=== PATIENT | female | born 2000 | race Caucasian/White ===

== ENCOUNTER 2018-01-18 19:48 | Emergency (ER) | payer OTHER ==
[~2018-01-18] VITALS: Ht 165.1 cm; Wt 104.8 kg
[~2018-01-18 19:48] MED LIST: ALBU90OI INH; ALBU90OI6 INH; AMOX500 PO; Acetaminophen-1 EAC1 PO; BCP; CLON.1 PO; CODACEE120 PO; Cipro500 MG PO; IBUP800 PO
[2018-01-18] MEDS ORDERED: PSEU120ER PO (20:20)
== END 2018-01-18 20:32 | disposition home or self-care (01) ==
LOC: ER 19:48
DX: H69.81 Other specified disorders of Eustachian tube, right ear (principal); F17.210 Nicotine dependence, cigarettes, uncomplicated
CPT/HCPCS: 99282

== ENCOUNTER 2018-09-26 08:34 | Emergency (ER) | payer OTHER ==
[~2018-09-26] VITALS: Ht 165.1 cm; Wt 99.8 kg
[~2018-09-26 08:34] MED LIST changes: +PSEU120ER PO
[2018-09-26] MEDS ORDERED: IBUP400 PO (09:53)
[2018-09-26] MEDS ORDERED: Zofran8 MG PO (09:53)
== END 2018-09-26 10:07 | disposition home or self-care (01) ==
LOC: ER 08:34
DX: J02.9 Acute pharyngitis, unspecified (principal); F17.290 Nicotine dependence, other tobacco product, uncomplicated
CPT/HCPCS: 87081; 87430; 99283; J1100

== ENCOUNTER → 2018-10-20 | Outpatient (CLI) | payer OTHER ==
[~2018-10-20] MED LIST changes: +IBUP400 PO; +Zofran8 MG PO
[2018-10-20 15:00] LABS: Candida species (DNA Probe) Negative (NEGATIVE); G. vaginalis (DNA Probe) Negative (NEGATIVE); T. vaginalis (DNA Probe) Negative (NEGATIVE)
== END | disposition home or self-care (01) ==
LOC: LAB 10:52 → LAB SHORT 10:52
PROVIDERS: Nurse Practitioner Obstetrics & Gynecology
DX: N76.0 Acute vaginitis (principal)
CPT/HCPCS: 87480; 87510; 87660

== ENCOUNTER 2019-01-06 19:19 | Emergency (ER) | payer OTHER ==
[~2019-01-06] VITALS: Ht 165.1 cm; Wt 103.4 kg
[2019-01-06] MEDS ORDERED: Flonase 0.05% N16 GM (22:03)
[2019-01-06] MEDS ORDERED: Mucinex600 MG PO (22:03)
== END 2019-01-06 22:11 | disposition home or self-care (01) ==
LOC: ER 19:19
DX: J06.9 Acute upper respiratory infection, unspecified (principal); J45.909 Unspecified asthma, uncomplicated; I10 Essential (primary) hypertension; Z87.891 Personal history of nicotine dependence
CPT/HCPCS: 99282

== ENCOUNTER → 2019-03-07 | Outpatient (CLI) | payer OTHER ==
[~2019-03-07] MED LIST changes: +Flonase 0.05% N16 GM; +Mucinex600 MG PO
== END | disposition home or self-care (01) ==
LOC: LAB EV 16:41 → LAB SHORT 16:41
DX: J03.90 Acute tonsillitis, unspecified (principal)
CPT/HCPCS: 87077; 87081; 87147; 87185